=== PATIENT | female | born 1990 | race African-American/Black ===

== ENCOUNTER 2018-05-26 14:25 | Emergency (ER) | payer OTHER ==
[~2018-05-26] VITALS: Ht 170.2 cm; Wt 70.3 kg
[2018-05-26] MEDS ORDERED: Haloperidol 5mg/ml Inj IM ONE (14:30)
[2018-05-26] MEDS ORDERED: LORazepam Inj 2mg/ml 1ml IM ONE (14:30)
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
[2018-05-26 14:37] VITALS: BP 132/92
[2018-05-26] MEDS ORDERED: UNOBMED (14:46)
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
--- NOTE | 2018-05-26 15:03 | NUR ---
ED Nurse Note: PT TO CT VIA ANTHONY ACCOMPANIED BY FAVIOLA
--- NOTE | 2018-05-26 15:14 | NUR ---
ED Nurse Note: PT BACK FROM CT VIA GURNEY ACCOMPANIED BY [employer].
[2018-05-26 15:17] LABS: BASOPHILS % (AUTO) 1.4 % (0.0-2.0); EOSINOPHILS % (AUTO) 5.1 % (0.0-3.0); HEMATOCRIT 35.4 % (37.0-47.0); HEMOGLOBIN 11.3 G/DL (12.0-16.0); LYMPHOCYTES % (AUTO) 28.7 % (20.0-45.0); MEAN CORPUSCULAR VOLUME 88 FL (80-99); MONOCYTES % (AUTO) 8.8 % (1.0-10.0); NEUTROPHILS % (AUTO) 55.9 % (45.0-75.0); PLATELET COUNT 273 K/UL (150-450); RED BLOOD COUNT 4.02 M/UL (4.20-5.40); RED CELL DISTRIBUTION WIDTH 13.1 % (11.6-14.8)
[2018-05-26 15:18] LABS: ANION GAP 9 mmol/L (5-15); BLOOD UREA NITROGEN 16 mg/dL (7-18); CALCIUM 9.1 MG/DL (8.5-10.1); CARBON DIOXIDE 26 MMOL/L (21-32); CHLORIDE 106 MMOL/L (98-107); CREATININE 1.6 MG/DL (0.55-1.30); SODIUM 141 MMOL/L (136-145)
[2018-05-26 15:22] LABS: ALANINE AMINOTRANSFERASE 28 U/L (12-78); ALBUMIN 3.4 G/DL (3.4-5.0); ALBUMIN/GLOBULIN RATIO 0.9 (1.0-2.7); ALKALINE PHOSPHATASE 73 U/L (46-116); ASPARTATE AMINO TRANSFERASE 22 U/L (15-37); BILIRUBIN,TOTAL 0.1 MG/DL (0.2-1.0)
--- NOTE | 2018-05-26 15:29 | Diagnostic Imaging Report ---
Indications: Altered mental status Technique: Spiral acquisitions obtained through the brain. Angled axial and coronal 5 x 5 mm slices were reconstructed. Total dose length product 1326.82 mGycm. CTDI vol(s) 70.38 mGy. Dose reduction achieved using automated exposure control Comparison: None. Findings: No acute intracranial hemorrhage or edema. No mass effect nor midline shift. Normal grove-white differentiation. Normal-sized ventricles and extra axial CSF spaces. There is questionably a small left parietal scalp contusion. The bones are intact. There is minimal ethmoid sinus disease Impression: Negative for acute intracranial bleed or mass effect Possible small high parietal scalp contusion Minimal ethmoid sinus disease The CT scanner at [facility] is accredited by the [employer] and the scans are performed using protocols designed to limit radiation exposure to as low as reasonably achievable to attain images of sufficient resolution adequate for diagnostic evaluation.
[2018-05-26 18:07] VITALS: BP 128/84
--- NOTE | 2018-05-26 18:08 | NUR ---
ED Nurse Note: PT SITTING PEACEFULLY IN BED IN NAD AND UNRESTRAINED. DISCHARGE PAPERWORK EXPLAINED TO PT AND [employer]. PT VERBALIZES UNDERSTANDING AND ALL QUESTIONS ANSWERED. DISCHARGE PAPERWORK GIVEN TO [employer], IV AND ID WRISTBAND REMOVED FROM PT. PT WALKED OUT OF ER WITH STEADY GAIT AND ALL BELONGINGS ACCOMPANIED BY [employer].
== END 2018-05-26 18:10 ==
LOC: EDBD 14:25 → EMR 14:55
DX: R45.1 Restlessness and agitation (principal); Z88.8 Allergy status to other drugs, medicaments and biological substances
CPT/HCPCS: 70450; 80053; 85025; 96372; 99284; G0480; 80329